=== PATIENT | female | born 1940 | race Caucasian/White ===

== ENCOUNTER → 2023-08-13 10:15 | Outpatient (REF) | payer MEDICARE, BC, SELFPAY | LOC: DHCBC MAIN 10:15 | PROVIDERS: ATTENDING PHYSICIAN Internal Medicine Cardiovascular Disease; FAMILY PHYSICIAN Family Medicine | DX: I50.32 Chronic diastolic (congestive) heart failure (principal); R06.00 Dyspnea, unspecified; I35.0 Nonrheumatic aortic (valve) stenosis; I34.0 Nonrheumatic mitral (valve) insufficiency; I49.1 Atrial premature depolarization | CPT/HCPCS: 93306 ==

== ENCOUNTER → 2023-08-15 15:23 | Outpatient (REF) | payer MEDICARE, BC, SELFPAY | LOC: RAD 15:23 | PROVIDERS: ATTENDING PHYSICIAN Physician Assistant; FAMILY PHYSICIAN Family Medicine | DX: M46.1 Sacroiliitis, not elsewhere classified (principal); M47.816 Spondylosis without myelopathy or radiculopathy, lumbar region | CPT/HCPCS: 72110; 72200 ==

== ENCOUNTER → 2024-03-17 11:15 | Outpatient (REF) | payer MEDICARE, BC, SELFPAY | LOC: HWRCS 11:15 | PROVIDERS: ATTENDING PHYSICIAN Nurse Practitioner Gerontology; FAMILY PHYSICIAN Family Medicine | DX: R06.09 Other forms of dyspnea (principal); I35.0 Nonrheumatic aortic (valve) stenosis; I34.2 Nonrheumatic mitral (valve) stenosis | CPT/HCPCS: 93306 ==

== ENCOUNTER → 2024-03-25 15:10 | Outpatient (REF) | payer MEDICARE, OTHER, SELFPAY | LOC: RAD 15:10 | PROVIDERS: ATTENDING PHYSICIAN Nurse Practitioner Gerontology; FAMILY PHYSICIAN Family Medicine | DX: R06.09 Other forms of dyspnea (principal) | CPT/HCPCS: 71046 ==

== ENCOUNTER 2024-04-09 06:17 | Day surgery (SDC) | payer MEDICARE, OTHER, SELFPAY ==
[2024-04-08 16:40] VITALS: BMI 32.6
[2024-04-09] VITALS (33 sets, daily range): BP systolic 112–195; BP diastolic 39–168; BMI 32.6
[2024-04-09] MEDS: LOW STRENGTH ASPIRIN 324 MG PO (07:13)
[2024-04-09] MEDS: NSS 500 IV (07:14)
--- NOTE | 2024-04-09 09:43 | ITS.CL.CATH ---
[facility] - Catheterization
Cardiac Catheterization
Procedure Report:
CARDIAC CATHETERIZATION REPORT
Date of Procedure: 04/09/2024
Referring: MAGDALENO Mejia
Indication: Severe, mixed valve disease, dyspnea on exertion.
PROCEDURE:
1. Right heart catheterization.
2. Left heart catheterization.
3. Coronary angiography.
4. Mitral valve interrogation.
5. Aortic valve interrogation.
6. Left ventriculography.
ACCESS:
6 Nepalese right radial artery.
5 Nepalese right antecubital vein.
CATHETERS:
1. 5 Nepalese balloon wedge.
2. 5 Nepalese JL 3.5.
3. 5 Nepalese JR4.
4. 6 Nepalese Jonel dual-lumen pigtail catheter.
HEMODYNAMIC DATA
Weight (kg): 86.2
AO (s/d/x mmHg): 140/44/70
LV (s/x mmHg): 176/21
PCWP (a/v/x mmHg): 25/41/24
PA (s/d/x mmHg): 45/25/32
RV (s/x mmHg): 47/10
RA (a/v/x mmHg): 16/14/11
SVC SvO2 (%): 63.1
IVC SvO2 (%): 33.3
Mixed Venous SvO2 (%): 55.7
PA SvO2 (%): 55.2
SaO2 (%): 96.2
Hbg (g/dL): 10.8
CO (L/min): 2.48
CI (L/min/m2): 1.29
TPG (mmHg): 8
PVR (Ott Units): 3.23
SVR (dynes*seconds*cm^-5): 1903
AVO2 Diff (Volume %): 5.95
AV gradient (x, mmHg): 34.23
AV area (cm2): 0.64
MV gradient (x, mmHg): 3.61
MV area (cm2): 1.12
LEFT VENTRICULOGRAPHY: Normal size left ventricle with preserved systolic function. Left ventricular ejection fraction estimated at 60%. There is dense mitral annular calcification. There is moderate to severe mitral valve regurgitation. The
aortic root and visualized ascending aorta appear normal. There is no obvious aortic valve insufficiency.
CORONARY ANGIOGRAPHY
Dominance: Right.
Left Main: Normal size, bifurcating vessel. There is no coronary artery disease.
LAD: Normal size vessel giving rise to 2 diagonals. There are minor luminal irregularities in the proximal vessel.
Ramus: Congenitally absent.
Circumflex: Large size, nondominant vessel giving rise to a large obtuse marginal then terminating as a second, large obtuse marginal. There is a 50-60% lesion in the proximal margin of OM 2.
RCA: Normal size, dominant vessel. There are luminal irregularities in the proximal vessel. There is a 50% lesion in the mid vessel.
INTERVENTIONS
None.
Closure Device: Vascular band for the right radial artery, manual pressure for the right antecubital vein.
Radiation dose (mGy): 414.54
DAP (cm2.Gy): 38.6463
Fluoroscopy time (minutes): 5.9
Sedation time (minutes): 19
CONCLUSIONS:
1. Right dominant circulation with luminal irregularities in the proximal LAD, a 50-60% lesion in the proximal margin of OM 2, luminal irregularities in the proximal RCA and a 50% lesion in the mid RCA.
2. Severe aortic valve stenosis (mean gradient = 34 mmHg, ZAY = 0.64 cm�).
3. Severe mitral valve stenosis (mean gradient 3.61 mmHg, MVA = 1.12 cm�).
4. Moderate to severe mitral valve regurgitation.
5. Severely impaired cardiac output/index (CO = 2.48 L/min, CI = 1.29 L/min/m�).
6. 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
7. Left bundle branch block with transient complete heart block resolving into Mobitz 1 second-degree AV block (Wenckebach) during right heart catheterization.
RECOMMENDATIONS:
1. Expectant management after cardiac catheterization via right radial/antecubital approach.
2. Limited weight bearing on the right wrist for one week.
3. Discussion with primary cardiology regarding management strategy going forward regarding severe mixed valve disease.
4. Aggressive primary prevention with high-dose, high potency statin. Increase atorvastatin to 40 mg daily. Goal LDL <55.
5. Telemetry monitoring in the post-cath recovery to evaluate for progression of underlying conduction disease.
6. Conduction disease is more advanced than previously appreciated.
7. Increase furosemide 40 mg to twice daily 4 days/week (previously 3 days/week) and once daily 3 days/week (previously 4 days/week).
Copy to: Supa Fink M.D., MAGDALENO Mejia
Luis Enrique Manning DO, FACC, FACP
[2024-04-09] MEDS: NSS IV (10:22)
[2024-04-09] MEDS: NSS 1000 IV (10:25)
[2024-04-09 12:43] LABS: Glucose - Point of Care 123 mg/dl (70-99)
--- NOTE | 2024-04-09 12:51 | PTCARENOTE ---
Addendum entered by Tyree Pierce RN 04/09/24 13:24:
Received patient from the quality assurance lab technician, walked into the bathroom, moved bowels and voided. Patient diaphoretic and lightheaded slightly. Walked back to bed, symptoms resolved.BP 112/39, HR 40's CHB, BBB. Blood sugar 129. Daughter at bedside
Original Note:
Received patient from the quality assurance lab technician, walked into the bathroom, moved bowels and voided. Patient diaphoetic and lightheaded slightly. Walked back to bed, symptoms resolved. \\BP 112/39, HR 40's CHB, BBB. Blood sugar 129. Daughter
--- NOTE | 2024-04-09 13:50 | PTCARENOTE ---
Patient with some intermittent left sided chest pressure and palpitations, not constant, comes and goes. Informed she is on bedrest. Patient denies feeling lightheaded, skin warm and dry. Complete HB BBB HR 40-50's. BP 160/57. Denies shortness of
breath. Pacer pads are on patient and code code placed outside the room. Roxy Peters SALESPERSON [employer] notified. Will continue to monitor
[2024-04-09] MEDS: TYLENOL 650 MG PO ×2 (15:10→22:00)
--- NOTE | 2024-04-09 15:55 | PTCARENOTE ---
Patient with lower back pain, Tylenol given. Warm blanket applied to lower back. BP elevated, cuff adjusted, BP 159/84 left upper arm. Right radial and brachial site CDI with Tegaderm, call patel in reach
--- NOTE | 2024-04-09 16:23 | CM ---
CM following for DC planning needs.
Met w/ patient to complete initial assessment.
Pt. informs that she resides w/ son/ DIL in a private, 2 story home. Pt. is functionally indep. w/ ADLs, mobility without the use of any assisted device. Pt. accesses 2nd level in the home via stair glide.
Pt. has Rx plan and uses [facility] for prescription needs.
Anticipated DC plan is for home, no needs.
CM to follow.
--- NOTE | 2024-04-09 18:06 | PTCARENOTE ---
Patient appears to be in NSR BBB. EKG to confirm. placed in chart
--- NOTE | 2024-04-09 19:39 | PTCARENOTE ---
Pt. seen and assessed in room. Pt. AOx3, tele reading NSR 70s-80s, with a left bundle branch block and PVCs. Pt. verbalizes understanding for staying on bedrest tonight as pt. went into a complete heart block during right and left heart
catheterization during dayshift. As of now patient states she feels 'much better'. Call patel within reach, continuing to monitor at this time.
[2024-04-10 03:59] VITALS: BP 185/64
[2024-04-10 04:01] VITALS: BP 176/62
[2024-04-10 04:39] LABS: Hematocrit 34.4 % (37.0-47.0); Hemoglobin 10.8 g/dL (12.0-16.0); Mean Corp Hgb Conc. 31.4 g/dL (33.0-37.0); Mean Corpuscular Hgb 28.1 pg (27.0-31.0); Mean Corpuscular Volume 89.6 fL (81.0-99.0); Mean Platelet Volume 9.9 fL (7.4-10.4); Platelet Count 300 10^3/uL (130-400); Red Blood Cell Count 3.84 10^6/uL (4.20-5.40); Red Cell Dist. Width 12.8 % (11.5-14.5)
[2024-04-10 04:42] VITALS: BMI 33.0
[2024-04-10] MEDS: SYNTHROID 88 MCG PO (04:59)
[2024-04-10 05:03] LABS: Blood Urea Nitrogen 19 mg/dl (7-17); Calcium 9.7 mg/dl (8.4-10.2); Carbon Dioxide 26 mmol/L (22-30); Chloride 103 mmol/L (98-107); Estimated Creatinine Clearance 62 ml/min; Glucose 105 mg/dl (70-99); HDL Cholesterol 54 mg/dl; LDL Cholesterol, Calculated 80 mg/dl; Potassium 4.5 mmol/L (3.5-5.1); Sodium 139 mmol/L (135-145); Total Cholesterol 167 mg/dl (50-199); Triglyceride 167 mg/dl (10-149); Very Low Density Lipoprotein 33 mg/dl (0-30); eGFR > 60.00
[2024-04-10 07:17] VITALS: BP 153/73
[2024-04-10] MEDS: LIPITOR 10 MG PO (07:39)
[2024-04-10] MEDS: LOW STRENGTH ASPIRIN 81 MG PO (07:39)
[2024-04-10] MEDS: LASIX 40 MG PO (07:39)
--- NOTE | 2024-04-10 07:52 | W.PN.CD ---
Today's Communication / Plan
-
Atorvastatin increased to 40 mg PO daily.
Repeat lipid panel in 3 months.
Change furosemide to 40 mg PO BID ///, 40 mg daily //.
Discuss options, including invasive vs. medical management with CT surgery.
Outpatient CAM to monitor her transiet heart block - hopefully just related to her RHC.
Discharge.
Impression / Plan
-
Impression/Plan: 84 y/o female with hypothyroidism, HLD, mixed valve disease and LBBB admitted after elective cardiac catheterization for dyspnea/valve evaluation was complicated by complete heart block.
#LBBB/CHB
-Chronic LBBB, acute CHB.
-Telemetry shows sikhism of NSR with LBBB around 16:45 yesterday.
-Repeat EKG this morning.
-Outpatient CAM to monitor for transient CHB.
#Severe Aortic Valve Stenosis
-Chronic.
-Mean gradient 34 mmHg, ZAY 0.64 cm2.
#Severe, calcific mitral valve stenosis/MAC
-Chronic.
-Mean gradient 3.61 mmHg, MVA = 1.12 cm2.
#HFpEF
-Chronic, certainly contributed to by severe mixed valve disease.
-LVEDP = 21 mmHg, PCWP = 24 mmHg, CI 1.29.
-Furosemide changed to 40 mg BID ///, 40 mg daily //.
-Discuss valve management options with surgery. This is an outpatient issue.
#CAD
-New diagnosis.
-Angiographically non-obstructive.
-Patient denies symptoms of angina.
-Atorvastatin increased to 40 mg daily.
#HLD
-Chronic.
-Total cholesterol = 167, LDL = 80, HDL = 54, Triglycerides = 167.
-Atorvastatin increased to 40 mg daily.
-Repeat lipid panel in 3 months.
#Dispo
-IVU status.
-Full code.
-Discharge today.
Subjective/Interval History:
Hypertensive overnight.
Nursing reports resolution of CHB, sikhism of NSR with LBBB.
EKG pending.
DATA:
Cardiac Catheterization, 04/09/2024:
CONCLUSIONS:
1. Right dominant circulation with luminal irregularities in the proximal LAD, a 50-60% lesion in the proximal margin of OM 2, luminal irregularities in the proximal RCA and a 50% lesion in the mid RCA.
2. Severe aortic valve stenosis (mean gradient = 34 mmHg, ZAY = 0.64 cm�).
3. Severe mitral valve stenosis (mean gradient 3.61 mmHg, MVA = 1.12 cm�).
4. Moderate to severe mitral valve regurgitation.
5. Severely impaired cardiac output/index (CO = 2.48 L/min, CI = 1.29 L/min/m�).
6. 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
7. Left bundle branch block with transient complete heart block resolving into Mobitz 1 second-degree AV block (Wenckebach) during right heart catheterization.
Transthoracic Echocardiogram, 03/17/2024:
CONCLUSIONS
Normal left ventricular size and systolic function.
LV ejection fraction is 55-60%.
Moderate aortic stenosis. Peak gradient 39mmHg and mean 26mmHgP
Dense mitral annular calcification. Possible severe mitral stenosis.Moderate
mitral regurgitation
Compared to the previous echo 08/13/23there is no significant change.
Physical Exam
Vital Signs/Labs
Vital Signs
Temp Pulse Resp BP Pulse Ox
36.6 C 74 20 153/73 96
04/10/24 07:17 04/10/24 07:30 04/10/24 07:17 04/10/24 07:17 04/10/24 07:17
04/08/24 04/09/24 04/10/24
11:59 11:59 11:59
Actual Weight 86.2 kg 87.1 kg
04/10/24 04:19
04/10/24 04:19
Triglycerides 167 mg/dl (10-149) H 04/10/24 04:19
LDL Cholesterol, Calc 80 mg/dl 04/10/24 04:19
VLDL Cholesterol, Calc 33 mg/dl (0-30) H 04/10/24 04:19
HDL Cholesterol 54 mg/dl 04/10/24 04:19
Physical Exam
Constitutional: No acute distress and Comfortable
EENT: Anicteric and Moist mucous membranes
Cardiovascular: Rhythm & rate is regular, Pedal edema is absent, JVD pressure is normal and Systolic murmur present
Respiratory: Respiratory effort normal, Lungs clear to auscul., Wheeze Absent, Crackles Absent and Rhonchi Absent
GI: Soft, Distention absent, Flat, Non tender and Normal bowel sounds
Neuro/Psych: AO x 3
Other: Cath Site (Right radial/antecubital access sites are C/D/I.)
Data Reviewed
-
Date of Service: April 10, 2024
Medical Decision Making: Reviewed Test Results, Independent Historian Assessment, Test Interpretation and Review of Case with other Provider
EKG: Tracing Personally Visualized and interpreted, Report Reviewed by me and Ordered by me
Echo: Report Reviewed by me
X-Ray/CT/US/MRI/NUC/PET: Image Personally Visualized and interpreted and Report Reviewed by me
Medical Tests (PFT, Pathology etc): Image Personally Visualized and interpreted, Report Reviewed by me, Discussed with Patient and Discussed with Family
Labs: Labs Reviewed by me
Old Records: Reviewed
--- NOTE | 2024-04-10 07:55 | PTCARENOTE ---
Assumed care. Patient AO x 3. NSR BBB HR 71. NPO for PPM today, meds given with a sip of water. Chest wiped with 2% CHG wipes, call patel in reach
--- NOTE | 2024-04-10 11:00 | PTCARENOTE ---
Patient discharged to home. Discharge teaching completed, verbalized understanding. Daughter here to drive her home today. Appointment for Holter 11:20 in the office. Patient instructed to go directly there for her Holter monitor to be placed. IV
and tele removed. Patient escorted to car in a wheelchair
--- NOTE | 2024-04-10 13:30 | W.DS.TRANS ---
DC Summary - Installer Soft Top
-
Discharge Instructions:
Discharge Diagnosis/Procedures Cardiac catheterization
Diet Low Cholesterol
Driving Restrictions No driving for 24 hours
Instructions:
Stand-Alone Forms: DC Instructions- Cath/EP Lab
Changes to Home Medications: Yes
Discharge Medications:
DC Medications w/original date entered in [facility]
Bifidobacterium infantis 4 mg capsule (Align) 4 mg PO DAILY 04/08/24
aspirin 81 mg capsule 81 mg PO DAILY 04/08/24
hydrocodone 5 mg-acetaminophen 300 mg tablet 1 tab PO Q6H PRN severe pain 04/08/24
levothyroxine 88 mcg tablet 88 mcg PO DAILY 04/08/24
multivitamin 1 tab PO DAILY 04/08/24
diphenhydramine 25 mg-acetaminophen 500 mg tablet (Tylenol PM Extra Strength) 2 tab PO HS PRN pain and insomnia 04/09/24
atorvastatin 40 mg tablet 40 mg PO DAILY #90 tabs 04/10/24
furosemide 40 mg tablet 40 mg PO .BID SUTHTHSA #0 tabs 04/10/24
furosemide 40 mg tablet 40 mg PO MOWEFR #0 tabs 04/10/24
Home Medication Changes
increased atrovastatin, and lasix
Pending Results: No
== END 2024-04-10 11:13 | disposition home or self-care (01) ==
LOC: CATH 06:17
PROVIDERS: Nurse Practitioner; ATTENDING PHYSICIAN Internal Medicine Cardiovascular Disease; FAMILY PHYSICIAN Family Medicine; OTHER PHYSICIAN Internal Medicine Cardiovascular Disease
DX: I08.0 Rheumatic disorders of both mitral and aortic valves (principal); R06.09 Other forms of dyspnea; I25.10 Atherosclerotic heart disease of native coronary artery without angina pectoris; I44.2 Atrioventricular block, complete; I27.29 Other secondary pulmonary hypertension; I11.0 Hypertensive heart disease with heart failure; I50.32 Chronic diastolic (congestive) heart failure; E78.5 Hyperlipidemia, unspecified; E03.9 Hypothyroidism, unspecified; H81.10 Benign paroxysmal vertigo, unspecified ear; Z79.82 Long term (current) use of aspirin
CPT/HCPCS: 80048; 80061; 82962; 85027; 93005; 93460; C1894; Q9967

== ENCOUNTER → 2024-08-29 09:28 | Outpatient (REF) | payer MEDICARE, OTHER, SELFPAY | LOC: RAD 09:28 | PROVIDERS: ATTENDING PHYSICIAN Nurse Practitioner Acute Care; FAMILY PHYSICIAN Family Medicine | DX: I35.0 Nonrheumatic aortic (valve) stenosis (principal) | CPT/HCPCS: 74174; 75572; Q9967 ==

== ENCOUNTER → 2024-10-23 15:39 | Outpatient (REF) | payer MEDICARE, OTHER, SELFPAY | LOC: RCS 15:39 | PROVIDERS: ATTENDING PHYSICIAN Internal Medicine Cardiovascular Disease; FAMILY PHYSICIAN Family Medicine | DX: I50.32 Chronic diastolic (congestive) heart failure (principal); R06.00 Dyspnea, unspecified; I35.0 Nonrheumatic aortic (valve) stenosis; I34.0 Nonrheumatic mitral (valve) insufficiency; I49.1 Atrial premature depolarization | CPT/HCPCS: 93306 ==

== ENCOUNTER 2024-12-18 09:46 | Inpatient (IN) | payer MEDICARE, OTHER, SELFPAY ==
--- NOTE | 2024-12-11 08:10 | HPS.HSE ---
Family Physician
-
Family Physician: Sonia Clayton
Chief Complaint
-
TIPTON
PreTAVR evaluation
History of Present Illness
Ms. Chung is a very pleasant 84 yof with a past medical history significant for , hypothyroid, and HLD. Her most recent echocardiogram from 03/17/2024 is notable for an ED 55-60%, AV P/M 39/26, ZAY 1.1, no AI, dense MAC with a MG 12, possible
severe MS, moderate MR, moderate TR, PAP 50-55mmHg.��Cardiac catheterization from 04/09/2024 demonstrated Right dominant circulation with luminal irregularities in the proximal LAD, a 50-60% lesion in the proximal margin of OM 2, luminal
irregularities in the proximal RCA and a 50% lesion in the mid RCA.�Severe aortic valve stenosis (mean gradient = 34 mmHg, AZY = 0.64 cm2). Severe mitral valve stenosis (mean gradient 3.61 mmHg, MVA = 1.12 cm2). Moderate to severe mitral valve
regurgitation. 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
WHO group 2 dominant.�Left bundle branch block with transient complete heart block resolving into Mobitz 1 second-degree AV block (Wenckebach) during right heart catheterization. From a symptomatology standpoint, patient describes TIPTON.
Patient reviewed with the heart team on 11/28 and the team recommended TF TAVR utilizing a 23 mm S3. She was instructed to continue aspirin including the morning of TAVR. Ms. Chung will arrive to the [facility] atrium at 0930. Reviewed the risks of
the procedure including stroke, vascular injury, and ppm. Allowed for and answered questions to the best of my ability.
Medical History
Past Medical History
Past Medical History: Reports Arrhythmia (LBBB with CHB after cardiac catheterization), CAD (nonobstructive CAD), CHF (HFpEF), HTN, Hypothyroidism, Valvular Disease (aortic stenosis, MS, MR, TR) and Other (osteoarthritis, spinal stenosis,
hyperlipidemia, )
Past Surgical History: Reports Gynocological ((L) breast lumpectomy), Orthopedic ((R) knee replacement, back surgery) and Other (cataract surgery)
Social History
Tobacco: Non-smoker
Alcohol: Occasional
Drug: None
Personal:
Living: With Family
Employment: Retired
Family History
Family History: Cancer
Allergies / Home Medications
Allergies reflects when Allergies were last updated in [facility].
Adhesive, latex, PCN
Home Medications with original date entered in [facility]
Aspirin 81(Aspirin) 81 MG Tablet Delayed Release 1 tablet Orally Once a day
Atorvastatin Calcium 40 MG Tablet 1 tablet Orally Once a Day
Furosemide 40 MG Tablet 1 tablet Orally BID MW & daily alternate days
Levothyroxine Sodium 88 MCG Tablet TAKE 1 TABLET ORALLY ON AN EMPTY STOMACH IN THE MORNING ONCE A DAY
Multiple Vitamin - Tablet 1 tablet Orally Once a day
Vicodin , Notes to Pharmacist: once a day at hs
Allergy/Medication List:
Adhesive, Latex, PCN
Review of Systems
-
A 12 point ROS was completed and negative except as noted: Yes
Constitutional: Reports Fatigue
Respiratory: Reports Other (TIPTON)
Physical Exam
Physical Exam
General: Well Developed, Well Nourished, No Apparent Distress and Comfortable
HEENT: NormoCephalic
Respiratory: Clear
Cardiac: Regular Rhythm and Murmur (IV/ BALJINDER)
Breast: Deferred by me
GI: Soft, Non Tender and Non Distended
Rectal: Deferred by Provider
Genito-urinary: Deferred by me
Musculoskeletal: No Edema
Skin: Warm, Dry and Rash
Neuro: Awake, Alert, Oriented and AO x 3
Psych: Calm
Data Reviewed
-
CT Scan: Report Reviewed by me and Discussed with Physician (TAVR CT scan reviewed with the heart team)
Medical Tests (Nuc Med, Echo, EKG etc): Report Reviewed by me and Discussed with Physician (cardiac catheterization and echocardiogram reviewed with the heart team)
Lab Data: Labs Reviewed by me
Old Records: Reviewed
Impression/Plan
-
IMPRESSION/PLAN:
Aortic Stenosis
TF TAVR planned for 12/18/2024 with Perfecto Manning and Gail utilizing a 23mm S3
Continue aspirin
POD#1/#30 echocardiogram
Cardiac rehab consult
Labs
-
Labs:
WBC 7.1 10^3/uL (4.8-10.8) 12/11/24 08:55
RBC 3.70 10^6/uL (4.20-5.40) L 12/11/24 08:55
Hgb 10.3 g/dL (12.0-16.0) L 12/11/24 08:55
Hct 31.8 % (37.0-47.0) L 12/11/24 08:55
Plt Count 305 10^3/uL (130-400) 12/11/24 08:55
Sodium 139 mmol/L (135-145) 12/11/24 08:54
Potassium 4.9 mmol/L (3.5-5.1) 12/11/24 08:54
Chloride 100 mmol/L (98-107) 12/11/24 08:54
Carbon Dioxide 31 mmol/L (22-30) H 12/11/24 08:54
BUN 18 mg/dl (7-17) H 12/11/24 08:54
Creatinine 0.8 mg/dL (0.6-1.0) 12/11/24 08:54
eGFR > 60.00 12/11/24 08:54
Glucose 96 mg/dl (70-99) 12/11/24 08:54
Calcium 9.8 mg/dl (8.4-10.2) 12/11/24 08:54
Gii-E-Tsuiyuljjxu Pept 196 pg/ml 12/11/24 08:54
Albumin 4.6 g/dl (3.5-5.0) 12/11/24 08:54
[2024-12-11 08:44] VITALS: BMI 33.1
[2024-12-11 09:21] LABS: Hematocrit 31.8 % (37.0-47.0); Hemoglobin 10.3 g/dL (12.0-16.0); Mean Corp Hgb Conc. 32.4 g/dL (33.0-37.0); Mean Corpuscular Volume 85.9 fL (81.0-99.0); Nucleated Red Blood Cells % 0 %; Platelet Count 305 10^3/uL (130-400); Red Cell Dist. Width 13.0 % (11.5-14.5)
[2024-12-11 09:32] LABS: INR 0.92; PT 12.9 Sec (11.4-14.6)
[2024-12-11 09:35] LABS: Urine Character Clear (Clear)
--- NOTE | 2024-12-11 10:08 | CM ---
Met with Mrs. Chung in [facility] She states prior to admission she resides with her son and [id number] in a two story home with one step to enter. She states she has a stair glide to get to the second floor where her bedroom/full bathroom is
located. She states she has a powder room on the first floor. She states prior to admission she was independent in ambulation and adls. She states she only has the stair glide and no toehr DME in the home. She states she has a prescription plan
and uses [facility]. She states her son and [id number] will be home over the weekend to assist in her care if needed. She also states her daughter will check on her also. The discharge plan is to return home with her son and daughter in
law and a home visit by the Transitional Care Nurse when medically stable.
We reviewed pre-op and post-op routines. We reviewed the shower instructions. She has the soap and written instructions. She already has the TAVR Educational Booklet. We also reviewed the restrictions including driving and lifting instructions.
We discussed a home visit by the Transitional Care Nurse. She ia agreeable to the home visit. The plan is to TAVR on 12/18/24.
[2024-12-11 10:28] LABS: ALT (SGPT) 14 U/L (0-35); AST (SGOT) 22 U/L (14-36); Albumin 4.6 g/dl (3.5-5.0); Alkaline Phosphatase 64 U/L (38-126); Blood Urea Nitrogen 18 mg/dl (7-17); Calcium 9.8 mg/dl (8.4-10.2); Carbon Dioxide 31 mmol/L (22-30); Chloride 100 mmol/L (98-107); Estimated Creatinine Clearance 52 ml/min; Glucose 96 mg/dl (70-99); Potassium 4.9 mmol/L (3.5-5.1); Sodium 139 mmol/L (135-145); Total Protein 7.3 g/dl (6.3-8.2); eGFR > 60.00
[2024-12-11 15:22] LABS: Glycohemoglobin (HgbA1c) 5.7 % (4.0-5.6)
[2024-12-18] VITALS (18 sets, daily range): BP systolic 94–169; BP diastolic 47–92; BMI 33.1
[2024-12-18] MEDS: LOW STRENGTH ASPIRIN 81 MG PO (10:40)
--- NOTE | 2024-12-18 11:37 | CM ---
Chart reviewed. Patient is in the OR today. Patient is independent of ADLS, lives with her son and DIL in a 2 STH, 1 SHANA, 0 DME but has a stairglide in the home. Plan is for the patient to return home with CT Transitional RN. CM to follow
--- NOTE | 2024-12-18 13:04 | W.CVOR.SURPR ---
CVOR Surgeon Immed Pre Op
-
I have examined this patient prior to performance of the scheduled procedure.
The patient's condition is unchanged from the time of the dictated/written History and
Physical and the patient is able to undergo the scheduled procedure.
TF TAVr
Full Rescue
[2024-12-18] MEDS: ANCEF 10 IV (13:40)
[2024-12-18 15:04] LABS: ACT-LR - POC 203 Seconds (116-155)
--- NOTE | 2024-12-18 15:15 | ITS.CL.TAVR ---
Uke Operator - TAVR Report
TAVR PRocedure
Procedure Report:
TRANSCATHETER AORTIC VALVE REPLACEMENT REPORT
Date: 12/18/2024
Referring physician: Supa Fink M.D.
Preop diagnosis: Severe aortic valve stenosis
Postop diagnosis: Severe aortic valve stenosis, acute on chronic heart failure with preserved ejection fraction.
Procedure: Transcatheter aortic valve replacement (TAVR) using a #23 Hidalgo JAXON S3 Ultra Resilia THV.
Operators: Luis Enrique Manning DO, Rk Reynolds M.D.
Findings: Severely calcified and stenotic aortic valve.
Anesthesia: Conscious sedation was provided by the anesthesia staff.
Estimated blood loss: Negligible.
Complications: None.
Condition: Stable
Procedure:
The patient was brought to the cardiac pipelines laborer after consent and was prepped and draped in standard sterile fashion. Conscious sedation was provided by the anesthesia staff. After a 'Time Out,' bilateral common femoral arteries and the left
common vein were access using a modified Seldinger technique with a micropuncture kit under ultrasound guidance. A 6 Maltese sheath was placed in the left femoral vein. Angiography performed through the micropuncture sheath confirmed satisfactory
arterial placement in the left common femoral artery. The micropuncture sheath was replaced with a 6Fr sheath in the left PATROL COMMUNITY SERVICE OFFICER. Angiography through the micropuncture kit confirmed satisfactory arterial placement in the right common femoral artery.
The right PATROL COMMUNITY SERVICE OFFICER was dilated with an 8FR dilator and preclosed with two Perc-Close devices. An 8Fr sheath was placed in the RCFA. A temporary pacing wire was advanced through the left femoral vein and into the right ventricle. The pacemaker
demonstrated good capture and was set to back up. A 5Fr pigtail catheter was advanced through the left femoral sheath and seated in the right coronary cusp. Angiography confirmed co-planar angles.
An AL-1 catheter was advanced through the 8Fr sheath, the J wire was exchanged for an Amplatz Extra-Stiff wire and the catheter and the 8 Fr sheath was removed. A 14 Fr dilator was advanced over the Extra-Stiff wire to the descending aorta. The
dilator was removed. The 14 Fr Hidalgo E-Sheath was inserted over the wire and into the descending aorta. Heparin 7000 units was given. The JAXON S3 was prepared on the back table. Orientation was confirmed by both physicians. The AL-1
catheter was re-advanced through the E-sheath to the level of the ascending aorta. The Extra-Stiff wire was removed and a soft tip straight wire was advanced through the AL-1. The straight tip wire was used to cross the aortic valve and the
catheter was advanced into the left ventricle. The straight wire was removed. Left ventricular pressure was measured. An Amplatz Extra-Stiff wire with curved proximal end was advanced through the catheter and into the left ventricular apex. The
catheter was removed. ACT was checked and confirmed to be > 250 seconds.
The valve was advanced over the Extrastiff wire and into the descending aorta. The balloon was pulled back and the valve was mounted on the balloon. The valve was advanced through the aortic arch and into the aortic valve annulus. The pusher
device was withdrawn to allow for balloon expansion. Low volume aortography confirmed good position of the valve. The valve was deployed during rapid ventricular pacing. Echocardiography and aortography confirmed a good result with no aortic valve
insufficiency and a 3 mmHg mean gradient. The valve deployment system was removed. The Hidalgo E-Sheath was then removed and hemostasis obtained with the two Perc-Close sutures and a 6 Maltese Angio-Seal. Final angiography demonstrated no evidence of
ileofemoral dissection/perforation and good runoff below the common femoral artery. The pacemaker and the pigtail catheter were removed. The left femoral artery sheath was removed using a 6 Maltese Angio-Seal. The left femoral venous sheath was
removed and manual pressure was applied with excellent hemostasis. Protamine 30 mg was administered.
Radiation
Dose (mGy): 269
DAP (cm2.Gy): 33.2
Fluoroscopy time (minutes): 7.9
TAVR Echo Gradient (mmHg): 3
LV (s/x, mmHg): 219/27
TAVR Cath Gradient (mmHg): Not obtained.
Conclusions:
1. Successful placement of #23 Jaxon S3 Ultra Resilia aortic valve via right transfemoral approach with no acute complications.
2. Acute on chronic heart failure with elevated filling pressures (LVEDP = 27 at 85.0 kg).
Luis Enrique Manning DO, FACC, FACP
Copy to: Supa Fink M.D., Sonia Clayton M.D.
--- NOTE | 2024-12-18 15:22 | W.PN.CT.SURG ---
CT Surgery Operative Note
-
OPERATIVE REPORT
Preoperative Diagnosis: Severe aortic valve stenosis, symptomatic
Postoperative Diagnosis: Same
Procedure(s) Performed: Right trans femoral TAVR with a 23 mm nominal Hidalgo TAVR valve
Date of Procedure: 12/18/2024
Comorbidities:
1. Severe aortic stenosis, symptomatic
2. Vertigo
3. Osteoarthritis
4. Hyperlipidemia
5. Obesity
6. Moderate MR with moderately severe mitral valve stenosis
7. Left bundle branch block
8. Acute on chronic heart failure with significant volume overload elevated LVEDP to greater than 25 pre-TAVR
Cardiac Surgeon: Rk Reynolds MD, MS
Beach Patrol Lieutenant: Luis Enrique Manning MD
Anesthesia: Conscious Sedation and Local Analgesia
EBL: 50cc
Products: none
Implant: 23 mm Hidalgo Resilia TAVR valve, SN: [id number]
Indication(s) for Procedures: 84-year-old male with symptomatic severe aortic stenosis. CT-TAVR protocol revealed acceptable anatomy for TAVR access and implantation.
Start time: 1415hrs
Deployment time: 1452hrs
End time: 1508hrs
Radiation Dose (mGy): 269
DAP (cm2.Gy): 33.2
Fluoroscopy time (minutes): 7.9
Contrast volume (ml): 93
TAVR gradient (mmHg): 3mmHg
Heparin Dose: 5000+3000units
Protamine Dose: 30mg
Final Valve Positionin/10
LVEPD: 27mmHG
Findings: Preoperative LVEF was 60% and was 60% following TAVR without inotropic support. Function was overall normal without regional wall motion abnormalities or dyskinesia. The aortic valve was well seated without detectable PVL and mean gradient
across the new valve was 3mmHg. after deployment, there was no additional pacing required and returned to sinus while on the laborer golf course table. There was successful placement of 23 mm nominal TAVR valve without acute complications. Given the elevated
LVEDP, Lasix will be given in the CVICU.
Access:
1. Device -right common femoral artery, perclose x 2 [+ 8Fr angioseal]
2. Pigtail -left common femoral artery [+ 6Fr angioseal]
3. Transvenous Pacer -left common femoral vein
Description of Procedure: The patient was taken to the laborer golf course. Their identity and procedure to be performed were verified and they were positioned supine on the laborer golf course table. Induction via conscious sedation. The patient was then prepped and
draped from chin to thigh in a sterile fashion. A preoperative time-out was performed with all members of the team present. Arterial and venous access was performed using fluoroscopy and ultrasound guidance with micropuncture and Seldinger
technique. Two perclose devices were used on the device side followed by access to the aorta with a stiff wire to facilitate E-sheath placement. Heparin was given. A stiff straight wire and AL-1 catheter was used to cross the aortic valve. An LVEDP
was measured. The stiff wire was exchanged for an extra stiff coiled tip wire. The valve was prepped and mounted on to the device carrier. An ACT of >250 was achieved. We verified x 3 that the valve was mounted in the correct orientation with the
skirt of the valve directed toward the tip of the device carrier. We advanced the device into the descending thoracic aorta where the valve was them mounted onto the balloon under fluoroscopy. The device was flexed and advanced over the arch into
the root and positioned across the aortic valve. Contrast fluoroscopy was used to visualize the prosthesis across the valve and to guide positioning. A pigtail catheter in the RCC as used as a guide. We aimed to have the bottom of the device marker
at the annular hinge point. The device sheath was pulled back. We performed a quick pre-deployment time out. The pacer was turned on and had capture. Blood pressure fell accordingly, angiography was done to verify the intended final placement and
the valve was deployed with 5 seconds of rapid pacing to nominal volume. The balloon was deflated and the pacer was turned off. We had recovery of vitals. The device carrier was unflexed and positioned back in the descending thoracic aorta. A
transthoracic echocardiogram was performed. The device was removed from the E-Sheath maintaining wire access followed by removal of the E-sheath as we cinched down the perclose devices. There was acceptable hemostasis. The pigtail was withdrawn into
the descending/abdominal and completion aortogram with runoff run-off angiography was performed. There was no stenosis or dissection of bilateral iliofemoral systems. There was acceptable hemostasis of bilateral groins and manual pressure was held
following wire removal. Low dose protamine was administered after checking another ACT.
All instrument, sponge, and needle counts were confirmed to be correct x 2 at the end of the operation. The patient was transferred to the cardiac intensive care unit in stable condition.
I, Dr. Rk Reynolds, was present, scrubbed for, and performed all critical elements of this procedure.
Rk Reynolds MD
Cardiothoracic Surgeon
[facility]
This operative dictation was created using the [employer] dictation system. Please excuse any grammatical, typographical, or 'sound alike' errors
[2024-12-18] MEDS: LASIX 40 MG IV (16:03)
[2024-12-18] MEDS: ANCEF IV (16:04)
[2024-12-18] MEDS: TYLENOL 650 MG PO (16:10)
--- NOTE | 2024-12-18 19:18 | PTCARENOTE ---
Pt received from recovery area post TAVR. Pt reported 5/10 back discomfort which she stated was manageable. Bilateral femoral wound sites present, no sign of hematoma, scant ooze on right femoral site dressing. Pt passing urine without problem.
Telemetry shows sinus rhythm with pre existing LBBB. Neuro assessment at pt's baseline. Plan to be OOB soon with assistance, for CXR and Echo on 12/19.
[2024-12-18] MEDS: ANCEF 5 IV (19:40)
[2024-12-18] MEDS: ROXICODONE 5 MG PO (22:31)
[2024-12-19] VITALS (11 sets, daily range): BP systolic 140–193; BP diastolic 49–128; PULSE 93; O2SAT 96; BMI 32.9
--- NOTE | 2024-12-19 01:44 | PTCARENOTE ---
Assumed care of patient at change of shift. Tele monitor shows NSR w/ BBBC. Patient ambulates self to bathroom, and denies any dizziness. HR tachy w/ ambulation, HR in the 110's. Pt denies any chest pain or SOB. Pt baseline w/ chronic back pain,
PRN oxycodone administered--see MAR for details. Neuro checks WNL. Right groin dressing w/ old drainage, and site marked. Left groin dressing intact. Right pedal pulse palpable, and left pedal pulse + w/ doppler. Pt w/ stress incontinence, mesh
panties and sonya pad provided. Patient aware of POC, and can make needs known. Call patel within reach.
[2024-12-19] MEDS: SYNTHROID 88 MCG PO (04:32)
[2024-12-19 04:39] LABS: Hematocrit 29.9 % (37.0-47.0); Hemoglobin 9.7 g/dL (12.0-16.0); Mean Corp Hgb Conc. 32.4 g/dL (33.0-37.0); Mean Corpuscular Volume 84.5 fL (81.0-99.0); Platelet Count 278 10^3/uL (130-400); Red Cell Dist. Width 13.2 % (11.5-14.5)
[2024-12-19 05:04] LABS: Blood Urea Nitrogen 19 mg/dl (7-17); Calcium 9.2 mg/dl (8.4-10.2); Carbon Dioxide 31 mmol/L (22-30); Chloride 100 mmol/L (98-107); Estimated Creatinine Clearance 52 ml/min; Glucose 117 mg/dl (70-99); Potassium 4.8 mmol/L (3.5-5.1); Sodium 137 mmol/L (135-145); eGFR > 60.00
--- NOTE | 2024-12-19 07:45 | W.PN.CD ---
Today's Communication / Plan
-
Echocardiogram pending.
Increase furosemide to 80 mg PO daily in light of elevated LVEDP and inconsistent PM dosing.
Discharge planning.
Impression / Plan
-
Impression/Plan: 84 y/o female with hypothyroidism, HLD, mixed valve disease and LBBB admitted for elective TAVR.
#Severe Aortic Valve Stenosis
-Chronic, progressive.
-S/P #23 Hidalgo JAXON S3 Ultra Resilia TAVR via right transfemoral approach without acute complication.
-LBBB stable on telemetry.
-Access sites are C/D/I.
-Antithrombotic therapy with aspirin.
-Post procedure echocardiogram pending.
#Severe, calcific mitral valve stenosis/MAC
-Chronic.
-Mean gradient 3.61 mmHg, MVA = 1.12 cm2 on prior catheterization.
#HFpEF
-Acute on chronic.
-LVEDP = 27 mmHg.
-She reports being inconsistent with PM dose of furosemide.
-Increase furosemide to 80 mg daily.
-Outpatient BMP in one week to monitor renal function.
#CAD
-New diagnosis.
-Angiographically non-obstructive.
-Continue atorvastatin 40 mg daily.
#HLD
-Chronic.
-Atorvastatin increased to 40 mg daily.
#Dispo
-IVU status.
-Full code.
-Discharge pending echocardiogram.
Subjective/Interval History:
TAVR yesterday.
Feels well.
DATA:
TAVR, 12/18/2024:
Conclusions:
1. Successful placement of #23 Jaxon S3 Ultra Resilia aortic valve via right transfemoral approach with no acute complications.
2. Acute on chronic heart failure with elevated filling pressures (LVEDP = 27 at 85.0 kg).
Cardiac Catheterization, 04/09/2024:
CONCLUSIONS:
1. Right dominant circulation with luminal irregularities in the proximal LAD, a 50-60% lesion in the proximal margin of OM 2, luminal irregularities in the proximal RCA and a 50% lesion in the mid RCA.
2. Severe aortic valve stenosis (mean gradient = 34 mmHg, ZAY = 0.64 cm�).
3. Severe mitral valve stenosis (mean gradient 3.61 mmHg, MVA = 1.12 cm�).
4. Moderate to severe mitral valve regurgitation.
5. Severely impaired cardiac output/index (CO = 2.48 L/min, CI = 1.29 L/min/m�).
6. 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
7. Left bundle branch block with transient complete heart block resolving into Mobitz 1 second-degree AV block (Wenckebach) during right heart catheterization.
Transthoracic Echocardiogram, 03/17/2024:
CONCLUSIONS
Normal left ventricular size and systolic function.
LV ejection fraction is 55-60%.
Moderate aortic stenosis. Peak gradient 39mmHg and mean 26mmHgP
Dense mitral annular calcification. Possible severe mitral stenosis.Moderate
mitral regurgitation
Compared to the previous echo 08/13/23there is no significant change.
Physical Exam
Vital Signs/Labs
Vital Signs
Temp Pulse Resp BP Pulse Ox
37.2 C 78 18 140/49 97
12/19/24 04:12 12/19/24 04:12 12/19/24 04:12 12/19/24 04:12 12/19/24 04:12
12/17/24 12/18/24 12/19/24
11:59 11:59 11:59
Actual Weight 84.3 kg
12/19/24 04:28
12/19/24 04:28
PT 12.9 Sec (11.4-14.6) 12/11/24 08:54
INR 0.92 12/11/24 08:54
12/11/24
08:54
Ftn-A-Lquhegdivuu Pept 196
Physical Exam
Constitutional: No acute distress and Comfortable
EENT: Anicteric and Moist mucous membranes
Cardiovascular: Rhythm & rate is regular, Pedal edema is absent, JVD pressure is normal, S1S2 is normal and Murmur/rub/gallop absent
Respiratory: Respiratory effort normal, Lungs clear to auscul., Wheeze Absent, Crackles Absent and Rhonchi Absent
GI: Soft, Distention absent, Flat, Non tender and Normal bowel sounds
Neuro/Psych: AO x 3
Other: Cath Site (Bilateral femoral access sites are C/D/I.)
Data Reviewed
-
Date of Service: December 19, 2024
Medical Decision Making: Reviewed Test Results, Independent Historian Assessment and Test Interpretation
EKG: Tracing Personally Visualized and interpreted and Report Reviewed by me
Echo: Tracing Personally Visualized and interpreted, Report Reviewed by me and Ordered by me
X-Ray/CT/US/MRI/NUC/PET: Image Personally Visualized and interpreted and Report Reviewed by me
Medical Tests (PFT, Pathology etc): Image Personally Visualized and interpreted, Report Reviewed by me and Discussed with Patient
Labs: Labs Reviewed by me
Old Records: Reviewed
[2024-12-19 08:03] LABS: ACT-LR - POC 271 Seconds (116-155)
--- NOTE | 2024-12-19 08:13 | W.PN.CT ---
Today's Communication / Plan
-
-pod #1
-no issues overnight
-LVEDP 27- diuresed with 40 iv Lasix (UO unmeasured)
-nsr 70s -80s overnight. No daily or pauses
-has pre-existing LBBB
-Echo today
-current meds (ASA, Lasix 40 on M,W, Fri, Lipitor, Synthroid)
-ambulate
-possible d/c
Assessment / Plan
-
- Severe symptomatic aortic valve stenosis- s/p Right trans femoral TAVR with a 23 mm nominal Hidalgo TAVR valve on 12/18/24, pod #1
- Intraop TTE: LVEF 60% pre and post with no wma
- Acute on chronic diastolic heart failure with significant volume overload elevated LVEDP to greater than 25 pre-TAVR
- Vertigo
- Osteoarthritis
- Hyperlipidemia
- Obesity
- Moderate MR with moderately severe mitral valve stenosis
- Pre-existing Left bundle branch block
Discussed patient care with: Nursing and Care Team
Subjective
-
Date of Service: December 18, 2024
Objective Data
-
Lab Results
12/11/24 08:55
12/11/24 08:54
PT 12.9 Sec (11.4-14.6) 12/11/24 08:54
INR 0.92 12/11/24 08:54
Vital Signs
Vital Signs
Temp Pulse Resp BP Pulse Ox
97.8 F 76 16 149/63 97
12/18/24 22:24 12/18/24 22:24 12/18/24 22:24 12/18/24 22:24 12/18/24 22:24
CT Intake/Output/Weight
12/18/24 12/18/24 12/19/24
06:59 18:59 06:59
Intake Total 1300 / 1600 300 / 1600
Output Total 350 / 350
Balance 1300 / 1250 -50 / 1250
SaO2: 97
Physical Exam
-
General: Awake and AOx3
Cardiovascular: Regular rate & rhythm, No Murmurs and No Rub
Respiratory: Clear
Incision: Other (groins are cdi, soft, nontender, no hematoma b/l)
Extremities: No Edema
Abdomen: soft, nontender, nondistended, + bowel sounds
Data Reviewed
-
Lab Results: Results Reviewed
Medications: Active Meds Reviewed
Chest X-Ray: Report Reviewed and Image Reviewed
ECG: Report Reviewed and Image Reviewed
[2024-12-19] MEDS: LIPITOR 40 MG PO (08:21)
[2024-12-19] MEDS: LOW STRENGTH ASPIRIN 81 MG PO (08:21)
[2024-12-19] MEDS: LASIX 40 MG PO ×2 (08:21→09:13)
--- NOTE | 2024-12-19 10:24 | W.DCSUMMARY ---
Discharge Summary
Discharge Data
Date of Admission: 12/18/24
Date of Discharge: 12/19/24
-
Pending Results: No
Hospital Course
Primary care physician: Sonia Clayton
Outpatient steel grinder: Danae
Inpatient consultants: MAHAD
Procedures:
1. 12/18/24 RIGHT transfemoral TAVR #23 Hidalgo Resilia by Drs. Rk Reynolds & Bib Manning
Primary Diagnosis:
1. Severe aortic stenosis
2. Acute on chronic heart failure with preserved EF
3. Chronic left bundle branch block, stable
Secondary Diagnoses:
1. Moderate mitral regurgitation and moderate to severe mitral stenosis
2. Nonobstructive coronary artery disease
3. Hyperlipidemia
4. BPPV
5. Hypothyroidism
6. Spinal stenosis
7. Class I obesity
8. Osteoarthritis
HPI: Patient is a very pleasant 84-year-old female with known progressive aortic stenosis, now severe with peak and mean gradients of 49/26 mmHg with aortic valve area of 0.8 cm�. Ejection fraction is preserved, left heart catheterization
demonstrated nonobstructive coronary disease. Patient was therefore referred for TAVR.
Hospital course: Patient was brought in electively on 12/18/2024 where she underwent a right transfemoral TAVR with a #23 Hidalgo Resilia valve by Drs. Reynolds and Nigel without any complications. She transferred to recovery in stable condition where
she received a dose of IV Lasix for elevated LVEDP at 27. Postop EKG demonstrated sinus rhythm with a chronic and stable left bundle branch block. She remained hemodynamically stable overnight, on postop day 1 she is ambulatory feeling well.
Groins remained stable EKG is unchanged. Follow-up echo demonstrates well seated TAVR, mean gradient of 9mmHg, no AI. patient was discharged to home with close follow-up with the transitional care nurse from [facility] who will see her in
a few days.
Home medication changes: Change Lasix dosing to 80 mg once daily instead of alternating 40mg twice daily. All other home meds resumed.
Discharge Plan
-
Patient Disposition: Home (Routine Discharge)
Discharge Diagnosis/Procedures: R TF TAVR #23mm Hidalgo (12/18)
Condition: Good
Diet: Low Fat, Low Cholesterol and 2 Gram Sodium
Activity: As tolerated
Driving Restrictions: No driving for 1 week
Bathing Restrictions: OK to Shower
Others Tests: 30-day follow up echo: 01/19/2025 @ 10:20 at [facility]
Other Services: Cardiac Rehab
Wound Care: No lotions, powders, or creams to puncture sites
Specialty Instructions: Weigh Daily- Call MD for wt gain/loss 3 lbs overnight/5 lbs in 1 week
Stand Alone Forms: DC Inst - TransFemoral (TAVR)
Referrals:
CT Transitional Care Nurse [Outside]
Referral Note: The Cardiothoracic Transitional Care Nurse will call you to set up a visit in 1-2 days.
[facility]. Cardiac Rehab [Outside] - 01/21/25 9:30 am
Referral Note: Cardiac Rehab Orientation appointment is on Sunday, January 21 at 9:30am.
The Cardiac Rehab gym is located on the first floor of the [facility].
Mildred cAosta CRNP [Specified Professional Personl, Cardiology] - 01/21/25 11:20 am
Sonia Clayton MD [Family Provider, Family Practice]
Prescriptions:
Continued
multivitamin Tablet
1 tab PO DAILY
levothyroxine 88 mcg Tablet
88 mcg PO DAILY
hydrocodone-acetaminophen 5-300 mg Tablet
1 tab PO Q6H PRN (Reason: severe pain)
Align (B.infantis) 4 mg Capsule
4 mg PO DAILY
aspirin 81 mg Capsule
81 mg PO DAILY
diphenhydramine-acetaminophen [Tylenol PM Extra Strength] 25-500 mg Tablet
1 tab PO HS PRN (Reason: pain and insomnia)
atorvastatin 40 mg Tablet
40 mg PO DAILY Qty: 90 5RF
Changed
furosemide 40 mg Tablet
80 mg PO DAILY Qty: 0 0RF
Discontinued
furosemide 40 mg Tablet
40 mg PO .BID SUTHTHSA Qty: 0 0RF
Rx Instructions:
BID on SUNDAY, SUN, SUN
Discharge Orders:
Discharge Patient (As Directed); Ordered 12/19/24
Ordered By: Stephanie Murry
Care Plan Goals
Care Plan Goals:
Problem: Readiness for enhanced knowledge related to diagnosis and treatment plan
Goal: Understand your diagnosis and treatment plan needs, including medications if applicable.
Instructions: Know your diagnosis, underlying causes and treatment plan options, including medications if applicable. Consult with your health care team to learn about your diagnosis and treatment plan, including medications if applicable.
Discharge Date and Time
Print Language: TELUGU
--- NOTE | 2024-12-19 11:21 | W.PN.ANS.POP ---
Anesthesia Post Operative
- Anesthesia Post Op Note
Vital Signs Stable-See Nursing Note: Yes
Airway Patent: Yes
Adequate Pain Control: Yes
Change in Mental Status: No
Current Postoperative Nausea & Vomiting: No
Anesthesia Complications: No
General Anesthetic Recall: No
Unplanned Admission: No
Post Op Hydration Adequate: Yes
- -
Pt awake and alert, VSS.
--- NOTE | 2024-12-19 16:35 | PTCARENOTE ---
DC orders in all IV's removed & tele box d/c all discharge instructions reviewed with patient and PT verbalized understanding. all perscriptions and dr's appointments reviewed. PT and RN walked to awaiting vehicle daughter was waiting in.
== END 2024-12-19 15:00 | disposition home or self-care (01) | DRG 266 ==
LOC: IVU 09:46
PROVIDERS: Physician Assistant Medical; ADMITTING PHYSICIAN Thoracic Surgery (Cardiothoracic Vascular Surgery); CONSULT PHYSICIAN Internal Medicine Cardiovascular Disease; FAMILY PHYSICIAN Family Medicine
PROC: 02RF38Z Replacement of Aortic Valve with Zooplastic Tissue, Percutaneous Approach (ICD-10-PCS; 2024-12-18)
DX: I35.0 Nonrheumatic aortic (valve) stenosis (principal); Z00.6 Encounter for examination for normal comparison and control in clinical research program; I50.33 Acute on chronic diastolic (congestive) heart failure; E78.5 Hyperlipidemia, unspecified; E66.811 Obesity, class 1; I34.0 Nonrheumatic mitral (valve) insufficiency; I44.7 Left bundle-branch block, unspecified; I11.0 Hypertensive heart disease with heart failure; H81.10 Benign paroxysmal vertigo, unspecified ear; I25.10 Atherosclerotic heart disease of native coronary artery without angina pectoris; E03.9 Hypothyroidism, unspecified; M48.00 Spinal stenosis, site unspecified; Z68.32 Body mass index [BMI] 32.0-32.9, adult; M19.90 Unspecified osteoarthritis, unspecified site
CPT/HCPCS: 33361; 36415; 71045; 71046; 80048; 80053; 81003; 82248; 83036; 83880; 85025; 85027; 85347; 85610; 86850; 86900; 86901; 86920; 87070; 93005; 93308; 93321; 93325; C1760; C1769; C1894; Q9967

== ENCOUNTER → 2025-01-19 10:05 | Outpatient (REF) | payer MEDICARE, OTHER, SELFPAY | LOC: RCS 10:05 | PROVIDERS: ATTENDING PHYSICIAN Internal Medicine Cardiovascular Disease; FAMILY PHYSICIAN Family Medicine | DX: I35.0 Nonrheumatic aortic (valve) stenosis (principal) | CPT/HCPCS: 93306 ==

== ENCOUNTER 2025-01-26 10:12 | Outpatient (RCR) | payer MEDICARE, OTHER, SELFPAY | END 2025-01-26 23:59 | disposition home or self-care (01) | LOC: CRHB 10:12 | PROVIDERS: ATTENDING PHYSICIAN Internal Medicine Cardiovascular Disease | DX: Z95.4 Presence of other heart-valve replacement (principal) | CPT/HCPCS: G0422; G0423 ==

== ENCOUNTER 2025-02-25 09:44 | Outpatient (RCR) | payer MEDICARE, OTHER, SELFPAY | END 2025-02-25 23:59 | disposition home or self-care (01) | LOC: CRHB 09:44 | PROVIDERS: ATTENDING PHYSICIAN Internal Medicine Cardiovascular Disease | DX: Z95.4 Presence of other heart-valve replacement (principal) | CPT/HCPCS: G0422; G0423 ==

== ENCOUNTER 2025-03-25 09:41 | Outpatient (RCR) | payer MEDICARE, OTHER, SELFPAY | END 2025-03-25 23:59 | disposition home or self-care (01) | LOC: CRHB 09:41 | PROVIDERS: ATTENDING PHYSICIAN Internal Medicine Cardiovascular Disease | DX: Z95.4 Presence of other heart-valve replacement (principal) | CPT/HCPCS: G0422; G0423 ==

== ENCOUNTER 2025-04-13 09:54 | Outpatient (RCR) | payer MEDICARE, OTHER, SELFPAY | END 2025-04-20 14:54 | disposition home or self-care (01) | LOC: CRHB 09:54 | PROVIDERS: ATTENDING PHYSICIAN Internal Medicine Cardiovascular Disease | DX: Z95.4 Presence of other heart-valve replacement (principal) | CPT/HCPCS: G0422; G0423 ==